=== PATIENT | male | born 1975 | race African-American/Black ===

== ENCOUNTER 2019-04-18 21:51 | Emergency (ER) | payer BC ==
[2019-04-18 22:29] VITALS: BP 155/106
[2019-04-18] MEDS ORDERED: NORMAL SALINE 1000 ML 1,000 ML IV ONE (23:29)
[2019-04-18] MEDS ORDERED: ACETAMINOPHEN 325 MG TABLET PO ONE (23:29)
[2019-04-18] MEDS ORDERED: ONDANSETRON HCL INJ/PF 4 MG/2 ML SDV IV ONE (23:29)
--- NOTE | 2019-04-18 23:30 | ER Document Report ---
ED Medical Screen (RME) - General Chief Complaint: Abdominal Pain Stated Complaint: HEADACHE,VOMITING,CHILLS Time Seen by Provider: 04/18/19 23:28 Mode of Arrival: Ambulatory Information source: Patient Notes: Patient presents complaining of chills, nausea vomiting and headache pain that started this afternoon. Patient states he is vomited about 5 times. Patient does complain of upper abdominal tenderness as well. I have greeted and performed a rapid initial assessment of this patient. A comprehensive ED assessment and evaluation of the patient, analysis of test results and completion of the medical decision making process will be conducted by additional ED providers. TRAVEL OUTSIDE OF THE [place] IN LAST 30 DAYS: No - Related Data Allergies/Adverse Reactions: No Known Allergies Allergy (Verified 07/25/14 16:40) Past Medical History - Social History Chew tobacco use (# tins/day): No Frequency of alcohol use: None - Past Medical History Cardiac Medical History: Reports: Hx Coronary Artery Disease Pulmonary Medical History: Reports: Hx Asthma Psychiatric Medical History: Reports: Hx Anxiety - Immunizations Immunizations up to date: Yes Hx Diphtheria, Pertussis, Tetanus Vaccination: Yes Physical Exam - Vital signs Vitals: Temp Pulse Resp BP Pulse Ox 97.9 F 88 20 155/106 H 97 04/18/19 22:27 04/18/19 22:27 04/18/19 22:27 04/18/19 22:27 04/18/19 22:27 - General General appearance: Alert - Abdominal Tenderness: Tender - Epigastric, left upper quadrant Course - Vital Signs Vital signs: Temp Pulse Resp BP Pulse Ox 97.9 F 88 20 155/106 H 97 04/18/19 23:24 04/18/19 23:24 04/18/19 23:24 04/18/19 23:24 04/18/19 23:24
== END 2019-04-19 05:35 | disposition left against medical advice (07) ==
LOC: ER 21:51
DX: Z53.21 Procedure and treatment not carried out due to patient leaving prior to being seen by health care provider (principal)
CPT/HCPCS: 99281